=== PATIENT | female | born 1945 | race African-American/Black ===

== ENCOUNTER → 2017-07-16 | Outpatient (CLI) | payer MEDICARE ==
--- NOTE | 2017-07-16 15:04 | RAD ---
Indication: Pulmonary nodule. Technique: CT chest without IV contrast with multiplanar reformats. Comparison: None Findings: Neck base is clear. Heart is normal in size. Coronary artery disease noted. No axillary, Mediastinal or hilar adenopathy. Subsegmental atelectasis or scarring seen in the lingula and anterior aspect of the left upper lobe. 2 mm nodule seen in the right lower lobe (series 2 image 30). 2 mm nodular opacity seen in the left major fissure (series 2 image 28). Triangular opacity seen in the left upper lobe (series 3 image 137). Noncontrast appearance of the liver, spleen, angry as, adrenals, kidneys is within normal limits. No suspicious bony lesions. Impression: Scattered few 2 mm pulmonary nodules. If patient is high risk, follow-up CT chest in one year recommended. PQRS Compliance Statement: One or more of the following individualized dose reduction techniques were utilized for this examination: 1. Automated exposure control 2. Adjustment of the mA and/or kV according to patient size 3. Use of iterative reconstruction technique
== END | disposition home or self-care (01) ==
LOC: CT 14:25
PROVIDERS: ATTEND Family Medicine
DX: J44.9 Chronic obstructive pulmonary disease, unspecified (principal); I25.10 Atherosclerotic heart disease of native coronary artery without angina pectoris
CPT/HCPCS: 71250

== ENCOUNTER 2020-12-19 03:34 | Emergency (ER) | payer MEDICARE ==
[~2020-12-19] VITALS: Ht 162.6 cm; Wt 100.0 kg
[~2020-12-19 03:34] MED LIST: SIMV40TA18 PO
[2020-12-19 03:35] VITALS: BP 168/110
[2020-12-19] MEDS ORDERED: GABA300C18 PO (04:04)
[2020-12-19] MEDS ORDERED: ACET1TAB33 PO (04:04)
--- NOTE | 2020-12-19 04:05 | PHYS DOC ---
Past Medical History Past Medical History: Other Additional Past Medical Histor: hyperlipidemia,SHINGLES Past Surgical History: Hysterectomy Smoking Status: Never Smoker Alcohol Use: None General Adult EDM: Chief Complaint: SHINGLES HPI: HPI: Patient is a 75 year old female presents for evaluation of shingles pain. Patient was dx with shingles and placed on antiviral medications on 12/16. Rash is classic shingles rash across right chest to back. Patient presents due to pain and itch. Patient was Rx lidocaine cream with no relief. Patient has tried multiple over the counter medications with no relief. Review of Systems: Review of Systems: Constitutional: Denies fever or chills. [] Eyes: Denies change in visual acuity. [] HENT: Denies nasal congestion or sore throat. [] Respiratory: Denies cough or shortness of breath. [] Cardiovascular: Denies chest pain or edema. [] GI: Denies abdominal pain, nausea, vomiting, bloody stools or diarrhea. [] : Denies dysuria. [] Musculoskeletal: Denies back pain or joint pain. [] Integument: positive rash. [] Neurologic: Denies headache, focal weakness or sensory changes. [] Endocrine: Denies polyuria or polydipsia. [] Lymphatic: Denies swollen glands. [] Psychiatric: Denies depression or anxiety. [] Heart Score: C/O Chest Pain: N/A Risk Factors: Risk Factors: DM, Current or recent (<one month) smoker, HTN, HLP, family history of CAD, obesity. Risk Scores: Score 0 - 3: 2.5% MACE over next 6 weeks - Discharge Home Score 4 - 6: 20.3% MACE over next 6 weeks - Admit for Clinical Observation Score 7 - 10: 72.7% MACE over next 6 weeks - Early Invasive Strategies Allergies: Allergies: Allergies Coded Allergies Type Severity Reaction Last Updated Verified No Known Drug Allergies 06/19/20 No Physical Exam: PE: General: alert, no acute distress. Skin: Rash right chest and back varying age consistent with shingles Head:: Normocephalic, atraumatic. Neck: Trachea midline. Eyes: EOMI, Normal conjunctiva, No drainage CARDIOVASCULAR: Regular rate and rhythm RESPIRATORY: No respiratory distress Back: Full range of motion. MUSCULOSKELETAL: Full range of motion of bilateral upper and lower extremities. GASTROINTESTINAL: Abdomen soft without rebound or guarding. NEUROLOGICAL: Alert and noted to person, place and time. No neurological deficits observed Psychiatric: Cooperative. Normal judgment Current Patient Data: Vital Signs: Vital Signs Date Time Temp Pulse Resp B/P (MAP) Pulse Ox O2 Delivery O2 Flow Rate FiO2 12/19/20 03:35 97.7 119 24 168/110 (129) 97 Room Air 97.7 EKG: EKG: [] Radiology/Procedures: Radiology/Procedures: [] Course & Med Decision Making: Course & Med Decision Making Pertinent Labs and Imaging studies reviewed. (See chart for details) [] Patient to continue currently prescribed medication will prescribe Neurontin and Tylenol 3 Dragon Disclaimer: Dragon Disclaimer: This electronic medical record was generated, in whole or in part, using a voice recognition dictation system. Departure Departure Impression: Primary Impression: Delmi Disposition: HOME / SELF CARE / HOMELESS Condition: STABLE Referrals: RONNIE ROSARIO MD (PCP) Patient Instructions: Delmi Guzman Gabapentin (NEURONTIN ) 300 Mg Capsule 300 MG PO BID for NEUROGENIC PAIN, #20 CAP Prov: DANIEL CARMONA DO 12/19/20 Acetaminophen With Codeine (ACETAMINOPHEN-COD #3 TABLET) 1 Each Tablet 1 TAB PO PRN Q4HRS PRN for PAIN, #20 TAB Prov: DANIEL CARMONA DO 12/19/20 DANIEL CARMONA DO December 19, 2020 04:05
[2020-12-19] MEDS ORDERED: GABAPENTIN 300 MG CAPSULE. PO ONE ×2 (04:11→04:45)
[2020-12-19] MEDS ORDERED: GABAPENTIN 300 MG CAPSULE. PO SCH ×2 (04:15→04:30)
== END 2020-12-19 04:15 | disposition home or self-care (01) ==
LOC: ER 03:34
DX: B02.9 Zoster without complications (principal); E78.5 Hyperlipidemia, unspecified
CPT/HCPCS: 99283

== ENCOUNTER 2020-12-27 10:19 | Emergency (ER) | payer MEDICARE ==
[~2020-12-27] VITALS: Ht 162.6 cm; Wt 88.6 kg
[~2020-12-27 10:19] MED LIST changes: +ACET1TAB33 PO; +GABA300C18 PO
[2020-12-27 10:34] VITALS: BP 168/80
[2020-12-27] MEDS ORDERED: CEPH500C PO (10:42)
[2020-12-27] MEDS ORDERED: LIDO35.4 TP (10:42)
[2020-12-27] MEDS ORDERED: MORPHINE SULFATE 4 MG/ML VIAL. IM ONE (10:45)
--- NOTE | 2020-12-27 10:48 | PHYS DOC ---
Past Medical History Past Medical History: Other Additional Past Medical Histor: hyperlipidemia,SHINGLES Past Surgical History: Hysterectomy Smoking Status: Never Smoker Alcohol Use: None General Adult EDM: Chief Complaint: UPPER EXTREMITY PAIN HPI: HPI: Patient is a 75 year old female who presents with was diagnosed with shingles on right chest and goes into the left armpit and down the back of the right arm and on the right shoulder blade on december 19. She has been placed on gabapentin, Percocet, valacyclovir. She states that she was using the lidocaine ointment but is not helping the pain. She did sharp neuropathic pain in the back of the right arm and there is some redness that looks like some cellulitis. Patient states it comes and goes. She states she has been using a ice pack also. Patient is here for pain control. Patient rates her pain a 10 out of 10 when the pain comes. She denies fever, body aches, chest pain, cough, headache, dizziness, numbness or tingling, abdominal pain, nausea, vomiting. Review of Systems: Review of Systems: Constitutional: Denies fever or chills. [] Eyes: Denies change in visual acuity. [] HENT: Denies nasal congestion or sore throat. [] Respiratory: Denies cough or shortness of breath. [] Cardiovascular: Denies chest pain or edema. [] GI: Denies abdominal pain, nausea, vomiting, bloody stools or diarrhea. [] : Denies dysuria. [] Musculoskeletal: Denies back pain or joint pain. + Right arm pain [] Integument: Denies rash.+ Right arm cellulitis [] Neurologic: Denies headache, focal weakness or sensory changes. [] Endocrine: Denies polyuria or polydipsia. [] Lymphatic: Denies swollen glands. [] Psychiatric: Denies depression or anxiety. [] Heart Score: C/O Chest Pain: No Risk Factors: Risk Factors: DM, Current or recent (<one month) smoker, HTN, HLP, family history of CAD, obesity. Risk Scores: Score 0 - 3: 2.5% MACE over next 6 weeks - Discharge Home Score 4 - 6: 20.3% MACE over next 6 weeks - Admit for Clinical Observation Score 7 - 10: 72.7% MACE over next 6 weeks - Early Invasive Strategies Allergies: Allergies: Allergies Coded Allergies Type Severity Reaction Last Updated Verified No Known Drug Allergies 06/19/20 No Physical Exam: PE: Constitutional: Well developed, well nourished, no acute distress, non-toxic appearance. [] HENT: Normocephalic, atraumatic, bilateral external ears normal, oropharynx moist, no oral exudates, nose normal. [] Eyes: PERRLA, EOMI, conjunctiva normal, no discharge. [] Neck: Normal range of motion, no tenderness, supple, no stridor. [] Cardiovascular:Heart rate regular rhythm, no murmur [] Lungs & Thorax: Bilateral breath sounds clear to auscultation [] Abdomen: Bowel sounds normal, soft, no tenderness, no masses, no pulsatile masses. [] Skin: Warm, dry, back of right arm erythema, no rash. Dried out herpetic rash to right chest, right axillary, right back of arm, right shoulder blade [] Back: No tenderness, no CVA tenderness. [] Extremities: No tenderness, no cyanosis, no clubbing, ROM intact, no edema. [] Neurologic: Alert and oriented X 3, normal motor function, normal sensory function, no focal deficits noted. [] Psychologic: Affect normal, judgement normal, mood normal. [] EKG: EKG: [] Radiology/Procedures: Radiology/Procedures: [] Course & Med Decision Making: Course & Med Decision Making Pertinent Labs and Imaging studies reviewed. (See chart for details) See HPI. Going to give the patient a morphine shot in the ED. She is currently on everything that we could use to help with her pain. I wrote for some more lidocaine ointment and antibiotic to cover for cellulitis. She is afebrile. Radial pulse strong present. There is no extremity swelling. Skin is pink warm and dry. The area to the back of the arm is reddened and warm to touch. Cap refill less than 2 seconds. Full range of motion of the extremity. She has a history of shingles, hysterectomy, hyperlipidemia. [] Dragon Disclaimer: Dragjhoan Disclaimer: This electronic medical record was generated, in whole or in part, using a voice recognition dictation system. Departure Departure Impression: Primary Impression: Post herpetic neuralgia Additional Impression: Cellulitis Qualified Codes: L03.113 - Cellulitis of right upper limb Disposition: 01 HOME / SELF CARE / HOMELESS Condition: STABLE Referrals: RONNIE ROSARIO MD (PCP) Patient Instructions: Cellulitis, Postherpetic Neuralgia Additional Instructions: Follow-up with primary care provider if needed. Continue taking all medications as prescribed. If you begin running a fever come back. Scripts Cephalexin (CEPHALEXIN) 500 Mg Capsule 1 CAP PO QID, #40 CAP Prov: MAY VAZQUEZ APRN 12/27/20 Lidocaine (LIDOCAINE) 35.44 Gm Oint...g. 35.44 GM TP TID PRN for PAIN, #1 MISC Prov: MAY VAZQUEZ APRN 12/27/20 MAY VAZQUEZ APRN Dec 27, 2020 10:48
== END 2020-12-27 11:01 | disposition home or self-care (01) ==
LOC: ER 10:19
DX: B02.29 Other postherpetic nervous system involvement (principal); L03.113 Cellulitis of right upper limb
CPT/HCPCS: 96372; 99283; J2270

== ENCOUNTER 2020-12-30 13:51 | Emergency (ER) | payer MEDICARE ==
[~2020-12-30] VITALS: Ht 162.6 cm; Wt 89.0 kg
[~2020-12-30 13:51] MED LIST changes: +CEPH500C PO; +LIDO35.4 TP
[2020-12-30 13:57] VITALS: BP 134/81
--- NOTE | 2020-12-30 14:24 | PHYS DOC ---
Past Medical History Past Medical History: Other Additional Past Medical Histor: hyperlipidemia,SHINGLES Past Surgical History: Hysterectomy Smoking Status: Never Smoker Alcohol Use: None General Adult EDM: Chief Complaint: SKIN PROBLEM HPI: HPI: This is a pleasant 75-year-old female presenting the emergency department today with a rash across her chest in a dermatomal distribution. The patient has had this rash for multiple weeks. She has pain that is severe nonradiating without alleviating factors. She has been taking her Valtrex and an oral antibiotic which was prescribed at an urgent care along with gabapentin. The patient still has Percocet from her previous surgery back in May which is not which she has been taking at night for the pain. This is helped quite a bit. She denies any fevers or any new rashes. She denies chest pain or shortness of breath. The pain primarily is in her arm where the rash is. Review of systems is negative for abdominal pain shortness of breath fevers headache nuchal rigidity. All other review of systems negative. Heart Score: C/O Chest Pain: No Risk Factors: Risk Factors: DM, Current or recent (<one month) smoker, HTN, HLP, family history of CAD, obesity. Risk Scores: Score 0 - 3: 2.5% MACE over next 6 weeks - Discharge Home Score 4 - 6: 20.3% MACE over next 6 weeks - Admit for Clinical Observation Score 7 - 10: 72.7% MACE over next 6 weeks - Early Invasive Strategies Allergies: Allergies: Allergies Coded Allergies Type Severity Reaction Last Updated Verified No Known Drug Allergies 06/19/20 No Physical Exam: PE: Constitutional: Well developed, well nourished, no acute distress, non-toxic appearance. [] HENT: Normocephalic, atraumatic, bilateral external ears normal, oropharynx moist, no oral exudates, nose normal. [] Eyes: PERRLA, EOMI, conjunctiva normal, no discharge. [] Neck: Normal range of motion, no tenderness, supple, no stridor. [] Cardiovascular:Heart rate regular rhythm, no murmur [] Lungs & Thorax: Bilateral breath sounds clear to auscultation [] the chest wall evaluated in the presence of a female nurse has a herpetic/shingles rash across the back and across into the anterior portion of the chest which does not cross midline. Abdomen: Bowel sounds normal, soft, no tenderness, no masses, no pulsatile masses. [] Skin: Warm, dry, no erythema, no rash. [] Back: No tenderness, no CVA tenderness. [] Extremities: No tenderness, no cyanosis, no clubbing, ROM intact, no edema. [] Neurologic: Alert and oriented X 3, normal motor function, normal sensory function, no focal deficits noted. [] Psychologic: Affect normal, judgement normal, mood normal. [] EKG: EKG: [] Radiology/Procedures: Radiology/Procedures: [] Course & Med Decision Making: Course & Med Decision Making Pertinent Labs and Imaging studies reviewed. (See chart for details) [] 75-year-old female presenting with postherpetic neuralgias. Her rash is healing currently. She has been on Valtrex for approximately 2 weeks now. We will go up on her gabapentin from 300 mg 3 times daily to 600 mg 3 times daily. We gave her a shot of hydromorphone here in the emergency department for immediate pain relief. She has oxycodone at home that she can take at night for pain. We will have her follow-up with her doctor in 1 to 2 days. Shey Disclaimer: Dragjhoan Disclaimer: This electronic medical record was generated, in whole or in part, using a voice recognition dictation system. Departure Departure Impression: Primary Impression: Post herpetic neuralgia Disposition: 01 HOME / SELF CARE / HOMELESS Condition: STABLE Referrals: RONNIE ROSARIO MD (PCP) Patient Instructions: Shingles Additional Instructions: EMERGENCY DEPARTMENT GENERAL DISCHARGE INSTRUCTIONS Follow-up with your primary physician in 1 to 2 days. Return to the emergency department if you have any new or concerning findings. Thank you for coming to [facility] Emergency Department (ED) today and trusting us with you care. We trust that you had a positive experience in our Emergency Department. If you wish to speak to the department management, you may call the Director at [phone]. Follow up is important in emergency/acute care visits. This condition should be evaluated by your primary care physician and any necessary consulting services for continued management within a few days (1-2) after discharge. Return to the emergency department if you have any new or concerning symptoms including but not limited to fever, chills, nausea, vomiting, intractable pain, any new rashes, chest pain, shortness of breath, uncontrolled bleeding, difficulty breathing, and/or vision loss. 1. Do you have a private Doctor? If you do not have a private doctor, please ask for a resource list of physicians or clinics that may be able to assist you with follow up care. 2. If a lab test or culture has been done and does not come back immediately, your results will be reviewed and you will be notified if you need a change in treatment. 3. Your care today has been supervised by a physician who is specially trained in emergency care. Many problems require more than one evaluation for a complete diagnosis and treatment. We recommend that you schedule your follow up appointment as recommended to ensure complete treatment of you illness or injury. If you are unable to obtain follow up care and continue to have a problem, or if your condition worsens, we recommend that you return to the ED. 4. We are not able to safely determine your condition over the phone nor are we able to give sound medical advice over the phone. For these safety reasons, if you call for medical advice we will ask you to come to the ED for further gustbao luation. IF YOUR SYMPTOMS WORSEN OR NEW SYMPTOMS DEVELOP, OR YOU HAVE CONCERNS ABOUT YOUR CONDITION; OR IF YOUR CONDITION WORSENS WHILE YOU ARE WAITING FOR YOUR FOLLOW UP APPOINTMENT; EITHER CONTACT YOUR PRIMARY CARE DOCTOR, THE PHYSICIAN WHOSE NAME AND NUMBER YOU WERE GIVEN, OR RETURN TO THE ED IMMEDIATELY. MAIDA JANE MD Dec 30, 2020 14:24
[2020-12-30] MEDS ORDERED: HYDROmorphone 2 MG/ML VIAL IM ONE (14:30)
== END 2020-12-30 14:45 | disposition home or self-care (01) ==
LOC: ER 13:51
DX: B02.29 Other postherpetic nervous system involvement (principal); E78.5 Hyperlipidemia, unspecified; Z90.710 Acquired absence of both cervix and uterus
CPT/HCPCS: 96372; 99283; J1170